=== PATIENT | male | born 1960 | race Two or more races ===

== ENCOUNTER 2017-05-02 13:58 | Emergency (ER) | payer BC ==
[2017-05-02 14:12] VITALS: TEMP 98.2
--- NOTE | 2017-05-02 15:03 | EDPHY ---
H & P Time Seen by Provider: 05/02/17 14:54 HPI/ROS: CHIEF COMPLAINT: Brow laceration HISTORY OF PRESENT ILLNESS: Patient is a 56-year-old male who was struck in the left brow by his lawnmower handle. He is trying to bring the lawnmower up some stairs and fell back striking him. He sustained a laceration. He felt dazed initially but now feels normal. He has had no nausea vomiting. He has mild headache. He has pain surrounding the laceration was concerned he "broke something." No visual change. No other complaints. REVIEW OF SYSTEMS: My complete review of systems is negative except as mentioned in the HPI. Past Medical/Surgical History: Hypothyroidism, hypertension Smoking Status: Never smoked Physical Exam: Vitals noted GENERAL: Well-appearing, in no acute distress, alert. HEAD: Patient is a 2 cm laceration on his left brow. There is no palpable foreign body. Minor surrounding bony tenderness to palpation. No crepitus.. EYES: PERRLA, EOMI, normal to inspection. ENT: Airway intact, no dental or oral injury, no malocclusion, no hemotympanum , normal external examination. NECK: The trachea is midline. There is no crepitus. The C-spine is nontender. NEXUS criteria is negative (no midline tenderness, no distracting injury, no altered mental status, no recent alcohol use, no focal neurologic deficit). RESPIRATORY: Clear to auscultation bilaterally, no rales, rhonchi or wheezing. There is no crepitus or palpable rib fractures. CVS: Well perfused BACK: Normal to inspection, no spinal tenderness. SKIN: Normal color, warm, dry. No pallor or diaphoresis. EXTREMITIES: Atraumatic, neurovascularly intact distally in all extremities, moves all extremities freely. NEURO/PSYCH: Alert and oriented x 3, GCS 15, normal mood and affect, normal motor sensory exam. Constitutional: Initial Vital Signs Temperature (C) 36.8 C 05/02/17 13:58 Heart Rate 94 05/02/17 13:58 Respiratory Rate 18 05/02/17 13:58 Blood Pressure 135/89 H 05/02/17 13:58 O2 Sat (%) 95 05/02/17 13:58 O2 Delivery Mode Room Air Allergies/Adverse Reactions: No Known Allergies Allergy (Unverified 05/02/17 14:09) Home Medications: Medication Instructions Recorded Bp Med 05/02/17 Levothyroxine 05/02/17 Medical Decision Making Procedures: Procedure: Laceration repair. Verbal consent was obtained from the patient. The 2 cm laceration on the left brow was anesthetized in the usual fashion. The wound was irrigated, draped and explored to its base with a gloved finger. There were no deep structures involved. The wound was repaired with 6 0 nylon. The wound repair was simple. The procedure was performed by myself. ED Course/Re-evaluation: In the emergency department I discussed possible etiologies with the patient. Patient had head and facial CT for his tenderness to palpation. Differential Diagnosis: My differential includes but is not limited to facial fracture, subarachnoid hemorrhage, subdural hematoma, epidural hematoma, contusion, laceration, foreign body Departure - Departure Disposition: Home, Routine, Self-Care Clinical Impression: Laceration, Contusion Condition: Good Instructions: Head Injury (ED), Laceration (ED), Care For Your Stitches (ED) Additional Instructions: You should have your sutures taken out in 7 days. Return with increasing headache, weakness, numbness, vomiting or any other concerns. Referrals: Alexander Apodaca MD [Primary Care Provider] - 5-7 days, if not improved
[2017-05-02] MEDS ORDERED: DIPH,PERTUSS(ACELL),TET PED/PF 0.5 ML VIAL IM ONE (16:53)
[2017-05-02] MEDS ORDERED: TDAP ADULT 0.5 ML INJ (BOOSTRIX) IM ONE (16:56)
[2017-05-02 18:01] VITALS: BP 131/86; PULSE 56; RESP 16; O2SAT 96
== END 2017-05-02 18:09 | disposition home or self-care (01) ==
PROC: 0HQ1XZZ Repair Face Skin, External Approach (ICD-10-PCS; principal; 2017-05-02)
DX: S01.122A Laceration with foreign body of left eyelid and periocular area, initial encounter (principal); I10 Essential (primary) hypertension; Z23 Encounter for immunization; W28.XXXA Contact with powered lawn mower, initial encounter